=== PATIENT | male | born 1945 | race American Indian/Alaskan Native ===

== ENCOUNTER 2019-10-22 10:43 | Outpatient (CLI) | payer MEDICARE, OTHER ==
[2019-10-22 12:23] LABS: Blood Urea Nitrogen 17 mg/dL (9-20)
--- NOTE | 2019-10-22 14:54 | Cat Scan Report ---
CT ABDOMEN AND PELVIS WITH CONTRAST HISTORY: I88.00 RETROPERTIONAL LYMPHADENOPATHY. COMPARISON: CT abdomen/pelvis from 06/16/2019 TECHNIQUE: CT images of the abdomen and pelvis were obtained following administration of intravenous contrast. All CT scans at this location are performed using CT dose reduction for ALARA by means of automated exposure control. CONTRAST: 100 ml of intravenous contrast administered. FINDINGS: Lungs/bones: There is a stable 3 mm pleural-based nodule in the left lower lobe on image #17 of seri es #2. Lungs are otherwise clear. There are degenerative changes within the spine and pelvis with no acute osseous abnormality identified. Abdomen/pelvis: Multiple tiny cysts are seen throughout the liver and the liver is mildly enlarged. The gallbladder, spleen, pancreas, and proximal GI tract show no acute abnormality. Several tiny simp le cysts are seen in both kidneys. There is stable bilateral adrenal nodularity. On the previous noncontrast exam, most of these finding s were less than 10 Hounsfield units which is consistent with adenomata. The prostate is enlarged and indents the bladder base. The bladder itself is otherwise unremarkable. No pelvic free fluid and no acute colonic abnormality identified. The appendix and terminal ileum fide ear normal. There is no pathologic inguinal, iliac chain, peritoneal, or retroperitoneal adenopathy. IMPRESSION: 1. No evidence of retroperitoneal adenopathy. Previously referenced left para-aortic lymph node is ac tually nodularity within the left adrenal gland. Both adrenal glands maintain similar nodularity to t he previous exam suggesting adenomata. 2. Several stable incidental findings including a 3 mm pleural-based nodule in the left lower lobe wh ich has been stable for nearly 1.5 years. Signer Name: Miki Domingo MD Signed: 10/22/2019 2:49 PM Workstation Name: [id number]
== END 2019-10-22 10:44 | disposition home or self-care (01) ==
LOC: CT 10:43
PROVIDERS: ATTEND Internal Medicine Hematology & Oncology
DX: M47.816 Spondylosis without myelopathy or radiculopathy, lumbar region (principal); R91.1 Solitary pulmonary nodule; N28.1 Cyst of kidney, acquired; K76.89 Other specified diseases of liver; R16.0 Hepatomegaly, not elsewhere classified; I88.0 Nonspecific mesenteric lymphadenitis
CPT/HCPCS: 36415; 74177; 82565; 84520; Q9967

== ENCOUNTER 2020-08-21 15:33 | Emergency (ER) | payer MEDICARE, OTHER ==
[2020-08-21] MEDS ORDERED: ASPIRIN 325 MG TAB PO ONE (16:10)
[2020-08-21 16:47] LABS: Basophils % (Auto) 0.4 % (0.0-1.8); Hematocrit 42.6 % (35.5-45.6); Hemoglobin 14.2 gm/dl (11.8-15.2); Lymphocytes # (Auto) 1.1 K/mm3 (1.2-5.4); Lymphocytes % (Auto) 12.7 % (13.4-35.0); Mean Corpuscular HGB Conc 33 % (32-34); Mean Corpuscular Volume 85 fl (84-94); Monocytes # (Auto) 0.4 K/mm3 (0.0-0.8); Monocytes % (Auto) 4.4 % (0.0-7.3); Platelet Count 238 K/mm3 (140-440); Red Blood Count 5.03 M/mm3 (3.65-5.03); Red Cell Distribution Width 14.4 % (13.2-15.2)
[2020-08-21 16:55] LABS: BUN/Creatinine Ratio 11; Blood Urea Nitrogen 15 mg/dL (9-20); Calcium 10.1 mg/dL (8.4-10.2); Hemolysis Index 11
--- NOTE | 2020-08-21 18:00 | XRay Report ---
CHEST 1 VIEW INDICATION / CLINICAL INFORMATION: Chest Pain. COMPARISON: 06/15/2019 FINDINGS: SUPPORT DEVICES: None. HEART / MEDIASTINUM: Stable. LUNGS / PLEURA: No significant pulmonary or pleural abnormality. No pneumothorax. ADDITIONAL FINDINGS: No significant additional findings. IMPRESSION: 1. No acute findings. No significant interval change. Signer Name: William Bonilla MD Signed: 08/21/2020 5:55 PM Workstation Name: [id number]
[2020-08-21] MEDS ORDERED: POTASSIUM CHLORIDE ER 20 MEQ TAB PO ONE (18:54)
[2020-08-21] MEDS ORDERED: ONDANSETRON 4 MG ODT TAB PO ONE (18:55)
--- NOTE | 2020-08-21 18:56 | Emergency Department Report ---
ED General Adult HPI - General Chief complaint: Dyspnea/Respdistress Stated complaint: SHORTNESS OF BREATH/DIZZINESS/HIGH BLOOD PRESSURE PUI?: Yes Time Seen by Provider: 08/21/20 18:33 Source: patient, RN notes reviewed, old records reviewed Mode of arrival: Ambulatory Limitations: No Limitations - History of Present Illness Initial comments: The patient was evaluated in the emergency department for symptoms described in the history of present illness. He/she was evaluated in the context of the global COVID-19 pandemic, which necessitated consideration that the patient might be at risk for infection with the virus that causes COVID-19. Institutional protocols and algorithms that pertain to the evaluation of patients at risk for COVID-19 are in a state of rapid change based on information released by regulatory bodies including the CDC and federal and state organizations. These policies and algorithms were followed during the patient's care in the emergency department. Please note that these policies, procedures and recommendations changed on a rapid basis. During the entire history and physical, I had on complete personal protective equipment. This is a 75-year-old gentleman. His past medical history includes hypertension, heart failure with reduced ejection fraction, 30 to 35%, as per 2D echo, May 2019, left heart cath recently showed minimal CAD, moderate dilated LV, with moderate to severe diffuse hypokinesis, presumed dilated cardiomyopathy. Medical management for cardiology conditions, history of renal insufficiency versus CKD versus cardiorenal syndrome versus vasomotor nephropathy, history of para-aortic lymphadenopathy, sinus bradycardia, and "atypical chest pain." Today, the patient presents to the ER with a complaint of nonspecific shortness of breath, body aches, malaise and fatigue. He denies headache, neck pain, chest pain, abdominal pain, shortness of breath. He thinks he has loss of taste and smell but he is not sure. He also reports multiple episodes of nausea and vomiting. No diarrhea. No urinary symptoms. No exposure to Covid positive individuals that he is aware of. He is not having physical pain at this time. He has not taken any new medications within the past 3 days that he is aware of. Nausea and vomiting resolved. Shortness of breath resolved. -: Gradual, hour(s) Consistency: intermittent Improves with: none Worsens with: none - Related Data Home Medications Medication Instructions Recorded Confirmed Last Taken Magnesium Oxide [Mag-Ox] 400 mg PO QDAY 08/21/20 08/21/20 Unknown Previous Rx's Medication Instructions Recorded Last Taken Type Aspirin [Aspirin BABY CHEW TAB] 81 mg PO QDAY #30 tab.chew 06/19/19 Unknown Rx AtorvaSTATin [Lipitor] 20 mg PO QHS #30 tablet 06/19/19 Unknown Rx Furosemide [Lasix] 20 mg PO QDAY #30 tablet 06/19/19 Unknown Rx amLODIPine 10 mg PO QDAY #30 tablet 06/19/19 Unknown Rx lisinopriL [Zestril TAB] 20 mg PO QDAY #30 tablet 06/19/19 Unknown Rx Ondansetron [Zofran Odt] 4 mg PO Q8HR PRN #20 tab.rapdis 08/21/20 Unknown Rx Potassium Chloride [K-Dur] 20 meq PO BID #30 tab 08/21/20 Unknown Rx Allergies Allergy/AdvReac Type Severity Reaction Status Date / Time No Known Allergies Allergy Unverified 06/15/19 20:25 ED Review of Systems ROS: Stated complaint: SHORTNESS OF BREATH/DIZZINESS/HIGH BLOOD PRESSURE Other details as noted in HPI Constitutional: malaise, weakness. denies: fever Eyes: denies: eye discharge ENT: denies: congestion Respiratory: shortness of breath Cardiovascular: denies: chest pain Gastrointestinal: nausea, vomiting. denies: abdominal pain, diarrhea Genitourinary: denies: dysuria Musculoskeletal: denies: back pain Neurological: weakness Hematological/Lymphatic: denies: easy bleeding ED Past Medical Hx - Past Medical History Previous Medical History?: Yes Hx Hypertension: Yes Hx Heart Attack/AMI: No Hx Congestive Heart Failure: Yes Hx Renal Disease: Yes Hx Asthma: Yes Hx HIV: No Additional medical history: Bronchitis,bph - Social History Smoking Status: Never Smoker Substance Use Type: None - Medications Home Medications: Home Medications Medication Instructions Recorded Confirmed Last Taken Type Aspirin [Aspirin BABY CHEW TAB] 81 mg PO QDAY #30 tab.chew 06/19/19 08/21/20 Unknown Rx AtorvaSTATin [Lipitor] 20 mg PO QHS #30 tablet 06/19/19 08/21/20 Unknown Rx Furosemide [Lasix] 20 mg PO QDAY #30 tablet 06/19/19 08/21/20 Unknown Rx amLODIPine 10 mg PO QDAY #30 tablet 06/19/19 08/21/20 Unknown Rx lisinopriL [Zestril TAB] 20 mg PO QDAY #30 tablet 06/19/19 08/21/20 Unknown Rx Magnesium Oxide [Mag-Ox] 400 mg PO QDAY 08/21/20 08/21/20 Unknown History Ondansetron [Zofran Odt] 4 mg PO Q8HR PRN #20 tab.rapdis 08/21/20 Unknown Rx Potassium Chloride [K-Dur] 20 meq PO BID #30 tab 08/21/20 Unknown Rx ED Physical Exam - General Limitations: No Limitations General appearance: alert, in no apparent distress - Head Head exam: Present: atraumatic, normocephalic - Eye Eye exam: Present: normal appearance, EOMI. Absent: nystagmus - ENT ENT exam: Present: normal exam, normal orophraynx, mucous membranes moist, normal external ear exam - Neck Neck exam: Present: normal inspection, full ROM. Absent: tenderness, meningismus - Respiratory Respiratory exam: Present: normal lung sounds bilaterally. Absent: respiratory distress, wheezes, rales, rhonchi, stridor, decreased breath sounds - Cardiovascular Cardiovascular Exam: Present: regular rate, normal rhythm, normal heart sounds. Absent: bradycardia, tachycardia, irregular rhythm, systolic murmur, diastolic murmur, rubs, gallop - GI/Abdominal GI/Abdominal exam: Present: soft. Absent: distended, tenderness, guarding, rebound, rigid, pulsatile mass - Rectal Rectal exam: Present: deferred - Extremities Exam Extremities exam: Present: normal inspection, full ROM, other (2+ pulses noted in the bilateral upper and lower extremities. There is no palpable cord. negative Homans sign. Muscular compartments are soft. The pelvis is stable.). Absent: pedal edema, calf tenderness - Back Exam Back exam: Present: normal inspection, full ROM. Absent: tenderness, CVA tenderness (R), CVA tenderness (L), paraspinal tenderness, vertebral tenderness - Neurological Exam Neurological exam: Present: alert (Visual acuity intact to finger counting, color perception, reading at a close distance), oriented X3, normal gait, other (No facial droop. Tongue midline. Extraocular movements intact bilaterally. Facial sensation intact to light touch in V1, V2, V3 distribution bilaterally. 5 and a 5 strength in 4 extremities. Sensation intact to light touch in 4 extremities.). Absent: motor sensory deficit - Psychiatric Psychiatric exam: Present: anxious - Skin Skin exam: Present: warm, dry, intact, normal color. Absent: rash ED Course Vital Signs 08/21/20 08/21/20 08/21/20 16:02 19:50 20:00 Temperature 98.3 F Pulse Rate 73 91 H 84 Respiratory 32 H 23 Rate Blood Pressure 152/89 153/91 154/82 O2 Sat by Pulse 100 100 100 Oximetry 08/21/20 08/21/20 08/21/20 20:15 20:31 20:45 Temperature Pulse Rate 78 78 79 Respiratory 23 18 17 Rate Blood Pressure 153/91 153/91 153/91 O2 Sat by Pulse 94 94 98 Oximetry 08/21/20 21:11 Temperature Pulse Rate 74 Respiratory 16 Rate Blood Pressure O2 Sat by Pulse 100 Oximetry - Reevaluation(s) Reevaluation #1: 08/21/20 21:27 Differential diagnosis, including but not limited to: COVID-19, pneumonia, congestive heart failure,, Bony embolism, urinary tract infection, intra- abdominal obstruction Assessment and plan: 75-year-old gentleman complaining of unopposed nausea and vomiting, now resolved, and shortness of breath. Complaint #1, shortness of breath. Not hypoxic on room air. Able to ambulate on room air on portable pulse ox for 5 minutes without significant difficulty, or hypoxic event. From a Covid perspective, if patient truly has COVID-19, at this point in time, does not meet criteria for admission or hospitalization. His exam, and objective imaging at this time does not suggest pneumonia, or acute decompensated congestive heart failure. Given his initial tachypnea, and undifferentiated shortness of breath, D-dimer sent, elevated, CT angiogram of the chest is pending at this time. However, tachypnea resolved. Patient appears to be quite comfortable. EKG unchanged from prior. Reassess after CT scan of the chest has resulted. Complaint #2, nausea and vomiting. CT scan of the abdomen pelvis obtained, no acute pathology. Laboratory studies reviewed and appreciated, we will replete h ypokalemia. We will treat his complaint of nausea, however, no vomiting at this time. Urinalysis is pending at this time. Reassess after urinalysis, and CT scan of the chest have resulted. 08/21/20 21:29 08/21/20 23:10 patient reassessed multiple times. Urinalysis negative for acute findings. No active vomiting. CT scan of the chest negative for acute disease. Continues to ambulate without difficulty. Suitable for trial of outpatient management ED Medical Decision Making - Lab Data Result diagrams: 08/21/20 16:24 08/21/20 16:24 Vital Signs 08/21/20 16:02 Temperature 98.3 F Pulse Rate 73 Respiratory 32 H Rate Blood Pressure 152/89 O2 Sat by Pulse 100 Oximetry Lab Results 08/21/20 08/21/20 08/21/20 Range/Units 16:24 16:24 16:24 WBC 8.3 (4.5-11.0) K/mm3 RBC 5.03 (3.65-5.03) M/mm3 Hgb 14.2 (11.8-15.2) gm/dl Hct 42.6 (35.5-45.6) % MCV 85 (84-94) fl MCH 28 (28-32) pg MCHC 33 (32-34) % RDW 14.4 (13.2-15.2) % Plt Count 238 (140-440) K/mm3 Lymph % (Auto) 12.7 L (13.4-35.0) % [place] % (Auto) 4.4 (0.0-7.3) % Eos % (Auto) 0.0 (0.0-4.3) % Baso % (Auto) 0.4 (0.0-1.8) % Lymph # (Auto) 1.1 L (1.2-5.4) K/mm3 [place] # (Auto) 0.4 (0.0-0.8) K/mm3 Eos # (Auto) 0.0 (0.0-0.4) K/mm3 Baso # (Auto) 0.0 (0.0-0.1) K/mm3 Seg Neutrophils % 82.5 H (40.0-70.0) % Seg Neutrophils # 6.9 (1.8-7.7) K/mm3 D-Dimer (0-234) ng/mlDDU Sodium 140 (137-145) mmol/L Potassium 2.8 L* (3.6-5.0) mmol/L Chloride 101.5 (98-107) mmol/L Carbon Dioxide 22 (22-30) mmol/L Anion Gap 19 mmol/L BUN 15 (9-20) mg/dL Creatinine 1.4 H (0.8-1.3) mg/dL Estimated GFR 60 ml/min BUN/Creatinine Ratio 11 % Glucose 175 H (75-100) mg/dL Calcium 10.1 (8.4-10.2) mg/dL Magnesium 1.80 (1.7-2.3) mg/dL Total Creatine Kinase 382 H (55-170) units/L Troponin T < 0.010 (0.00-0.029) ng/mL NT-Pro-B Natriuret Pep 905.4 H (0-900) pg/mL TSH (0.270-4.200) mlU/mL 08/21/20 08/21/20 Range/Units 19:01 19:01 WBC (4.5-11.0) K/mm3 RBC (3.65-5.03) M/mm3 Hgb (11.8-15.2) gm/dl Hct (35.5-45.6) % MCV (84-94) fl MCH (28-32) pg MCHC (32-34) % RDW (13.2-15.2) % Plt Count (140-440) K/mm3 Lymph % (Auto) (13.4-35.0) % [place] % (Auto) (0.0-7.3) % Eos % (Auto) (0.0-4.3) % Baso % (Auto) (0.0-1.8) % Lymph # (Auto) (1.2-5.4) K/mm3 [place] # (Auto) (0.0-0.8) K/mm3 Eos # (Auto) (0.0-0.4) K/mm3 Baso # (Auto) (0.0-0.1) K/mm3 Seg Neutrophils % (40.0-70.0) % Seg Neutrophils # (1.8-7.7) K/mm3 D-Dimer 429.74 H (0-234) ng/mlDDU Sodium (137-145) mmol/L Potassium (3.6-5.0) mmol/L Chloride (98-107) mmol/L Carbon Dioxide (22-30) mmol/L Anion Gap mmol/L BUN (9-20) mg/dL Creatinine (0.8-1.3) mg/dL Estimated GFR ml/min BUN/Creatinine Ratio % Glucose (75-100) mg/dL Calcium (8.4-10.2) mg/dL Magnesium (1.7-2.3) mg/dL Total Creatine Kinase (55-170) units/L Troponin T (0.00-0.029) ng/mL NT-Pro-B Natriuret Pep (0-900) pg/mL TSH 0.435 (0.270-4.200) mlU/mL - EKG Data -: EKG Interpreted by Nm EKG shows normal: sinus rhythm Rate: normal - EKG Data 08/21/20 21:16 Sinus rhythm, 85 bpm, normal axis, QTC prolonged, poor R progression, atrial enlargement, left ventricular hypertrophy. Abnormal EKG. Not a STEMI. Grossly unchanged when compared to prior EKG from 2019, PVCs have resolved. - Radiology Data Radiology results: report reviewed, image reviewed Print Report Referring Physician: GIGI FAN Patient Name: JOSE WOODS JR Date of : 1945 Sex: Male Report Date: 2020-08-21 Report Status: Finalized Findings [facility] [address] [place] [address] Cat Scan Report Signed Patient: JOSE WOODS JR MR#: [id number] : 1945 Acct:[id number] Age/Sex: 75 / M ADM Date: 08/21/20 Loc: ED Attending Dr: Ordering Physician: GIGI FAN MD Date of Service: 08/21/20 Procedure(s): CT chest wo con Accession Number(s): [id number] cc: GIGI FAN MD CT CHEST WITHOUT CONTRAST INDICATION / CLINICAL INFORMATION: dyspnea, chf vs PNA. TECHNIQUE: Axial CT images were obtained through the chest without contrast. All CT scans at this location are performed using CT dose reduction for ALARA by means of automated exposure control. COMPARISON: None available. FINDINGS: CHEST: THORACIC AORTA: Mild atherosclerotic calcification without acute abnormality. HEART: There is cardiac enlargement without pericardial effusion. MEDIASTINUM / JESSICA: No significant abnormality. No significant thoracic lymphadenopathy. LUNGS/PLEURA: No acute airspace disease. No pleural effusion or pneumothorax. UPPER ABDOMEN: Detailed separately on concurrent CT of the abdomen and pelvis. BONES: NO ACUTE PROCESS. IMPRESSION: No acute process of the chest. Signer Name: Adry De La Torre MD Signed: 08/21/2020 8:02 PM Workstation Name: [id number] Transcribed By: JACK Dictated By: ADRY BARROSO MD Electronically Authenticated By: ADRY BARROSO MD Signed Date/Time: 08/21/202001 DD/ 99 TD/TT: Print Report Referring Physician: GIGI FAN Patient Name: JOSE WOODS JR Date of : 1945 Sex: Male Report Date: 2020-08-21 Report Status: [place] [address] Cat Scan Report Signed Patient: JOSE WOODS JR MR#: [id number] : 1945 Acct:[id number] Age/Sex: 75 / M ADM Date: 08/21/20 Loc: ED Attending Dr: Ordering Physician: GIGI FAN MD Date of Service: 08/21/20 Procedure(s): CT abdomen pelvis wo con Accession Number(s): [id number] cc: GIGI FAN MD CT ABDOMEN AND PELVIS WITHOUT CONTRAST INDICATION / CLINICAL INFORMATION: n/v , weakness. TECHNIQUE: Axial CT images were obtained through the abdomen and pelvis without IV contrast. All CT scans at this location are performed using CT dose reduction for ALARA by means of automated exposure control. COMPARISON: 10/22/2019. FINDINGS: LIVER: Stable tiny hypodensities throughout the liver, statistically reflect cysts. GALLBLADDER/BILIARY TREE: Unremarkable PANCREAS: Unremarkable SPLEEN: Unremarkable ADRENALS: Stable pelon ateral adrenal nodularity. Most of these measure less than 10 Hounsfield units, most compatible with adenomata. KIDNEYS / URETER: Left renal cysts are present. There is no urolithiasis or hydronephrosis. URINARY BLADDER: Unremarkable REPRODUCTIVE ORGANS: Unremarkable STOMACH / SMALL BOWEL: Stomach and small bowel are normal in caliber. No evidence of bowel inflammation. COLON: The colon is unremarkable. The appendix is normal in caliber. LYMPH NODES: No significant adenopathy. VASCULATURE: Mild atherosclerotic calcification without acute abnormality. OTHER: No free air, free fluid, or focal fluid collection is identified. SKELETAL SYSTEM: Moderate scattered degenerative changes of the spine with severe lower lumbar facet arthropathy. No acute osseous findings. IMPRESSION: 1. No acute process of the abdomen or pelvis. 2. Several stable chronic, incidental findings, as detailed above. Signer Name: Adry De La Torre MD Signed: 08/21/2020 8:10 PM Workstation Name: [id number] Transcribed By: JACK Dictated By: ADRY BARROSO MD Electronically Authenticated By: ADRY BARROSO MD Signed Date/Time: 08/21/202009 DD/ 04 TD/TT: Print Report Referring Physician: ED LETICIA Patient Name: JOSE WOODS JR Date of : 1945 Sex: Male Report Date: 2020-08-21 Report Status: Finalized Findings [address] [address] XRay Report Signed Patient: JOSE WOODS JR MR#: [id number] : 1945 Acct:[id number] Age/Sex: 75 / M ADM Date: 08/21/20 Loc: ED Attending Dr: Ordering Physician: GIANCARLO KELLY MD Date of Service: 08/21/20 Procedure (s): XR chest 1V ap Accession Number(s): [id number] cc: ED MD LETICIA Fluoro Time In Minutes: CHEST 1 VIEW INDICATION / CLINICAL INFORMATION: Chest Pain. COMPARISON: 06/15/2019 FINDINGS: SUPPORT DEVICES: None. HEART / MEDIASTINUM: Stable. LUNGS / PLEURA: No significant pulmonary or pleural abnormality. No pneumothorax. ADDITIONAL FINDINGS: No significant additional findings. IMPRESSION: 1. No acute findings. No significant interval change. Signer Name: William Brooke MD Signed: 08/21/2020 5:55 PM Workstation Name: [id number] Transcribed By: Dictated By: WILLIAM BROOKE Electronically Authenticated By: WILLIAM BROOKE Signed Date/Time: 08/21/201754 DD/ 54 TD/TT: Critical care attestation.: If time is entered above; I have spent that time in minutes in the direct care of this critically ill patient, excluding procedure time. ED Disposition Clinical Impression: Hypokalemia, Dyspnea, History of nausea and vomiting, Suspected 2019 novel coronavirus infection Disposition: DC-01 TO HOME OR SELFCARE Is pt being admited?: No Does the pt Need Aspirin: No Condition: Good Additional Instructions: As we discussed, the patient most likely has novel coronavirus/COVID. the symptoms of COVID will typically persist 10 to 14 days. There is no cure at this time for COVID. Please make certain to self isolate and self quarantine, follow-up with an outpatient primary care doctor within the next 3 to 5 days, wash hands with soap and water frequently, thoroughly and often, patient may take the prescribed medications as needed and directed. Advance diet and drink plenty of fluids as tolerated. Avoid interactions with the very elderly, very young, and those with chronic medical conditions. Return to the emergency room right away with new pain, worsening pain, migration of pain, projectile vomiting, change in mental status, confusion, inability to tolerate liquid feeds, new, worsened or different symptoms not present on the initial emergency room evaluation. Do not take metformin medication for the next 2 days, if patient takes this medication. Referrals: MACRINA BRANHAM MD [Primary Care Provider] - 3-5 Days
[2020-08-21] MEDS: POTASSIUM CHLORIDE 10 MEQ 10 MEQ/100 ML BAG IV SCH ×4 (19:15→23:47)
[2020-08-21] MEDS ORDERED: SODIUM CHLORIDE 0.9% 500 ML 500 ML ONE (19:18)
[2020-08-21] MEDS ORDERED: SODIUM CHLORIDE 0.9% 500 ML 500 ML IV SCH (20:00)
--- NOTE | 2020-08-21 20:06 | Cat Scan Report ---
CT CHEST WITHOUT CONTRAST INDICATION / CLINICAL INFORMATION: dyspnea, chf vs PNA. TECHNIQUE: Axial CT images were obtained through the chest without contrast. All CT scans at this location are p erformed using CT dose reduction for ALARA by means of automated exposure control. COMPARISON: None available. FINDINGS: CHEST: THORACIC AORTA: Mild atherosclerotic calcification without acute abnormality. HEART: There is cardiac enlargement without pericardial effusion. MEDIASTINUM / JESSICA: No significant abnormality. No significant thoracic lymphadenopathy. LUNGS/PLEURA: No acute airspace disease. No pleural effusion or pneumothorax. UPPER ABDOMEN: Detailed separately on concurrent CT of the abdomen and pelvis. BONES: NO ACUTE PROCESS. IMPRESSION: No acute process of the chest. Signer Name: Tom De La Torre MD Signed: 08/21/2020 8:02 PM Workstation Name: [id number]
--- NOTE | 2020-08-21 20:15 | Cat Scan Report ---
CT ABDOMEN AND PELVIS WITHOUT CONTRAST INDICATION / CLINICAL INFORMATION: n/v , weakness. TECHNIQUE: Axial CT images were obtained through the abdomen and pelvis without IV contrast. All CT scans at this location are performed using CT dose reduction for ALARA by means of automated exposure control. COMPARISON: 10/22/2019. FINDINGS: LIVER: Stable tiny hypodensities throughout the liver, statistically reflect cysts. GALLBLADDER/BILIARY TREE: Unremarkable PANCREAS: Unremarkable SPLEEN: Unremarkable ADRENALS: Stable bilateral adrenal nodularity. Most of these measure less than 10 Hounsfield units, m ost compatible with adenomata. KIDNEYS / URETER: Left renal cysts are present. There is no urolithiasis or hydronephrosis. URINARY BLADDER: Unremarkable REPRODUCTIVE ORGANS: Unremarkable STOMACH / SMALL BOWEL: Stomach and small bowel are normal in caliber. No evidence of bowel inflammati on. COLON: The colon is unremarkable. The appendix is normal in caliber. LYMPH NODES: No significant adenopathy. VASCULATURE: Mild atherosclerotic calcification without acute abnormality. OTHER: No free air, free fluid, or focal fluid collection is identified. SKELETAL SYSTEM: Moderate scattered degenerative changes of the spine with severe lower lumbar facet arthropathy. No acute osseous findings. IMPRESSION: 1. No acute process of the abdomen or pelvis. 2. Several stable chronic, incidental findings, as detailed above. Signer Name: Tom De La Torre MD Signed: 08/21/2020 8:10 PM Workstation Name: [id number]
--- NOTE | 2020-08-21 22:10 | Cat Scan Report ---
CTA CHEST WITH CONTRAST INDICATION / CLINICAL INFORMATION: dyspnea, + d dimer. TECHNIQUE: Axial CT images were obtained through the chest after injection of IV contrast. 3 plane TX P and/or 3D reconstructions were produced. All CT scans at this location are performed using CT dose reduction for ALARA by means of automated exposure control. COMPARISON: CT of the chest from earlier today. FINDINGS: PULMONARY ARTERIES: No central or segmental pulmonary embolus. THORACIC AORTA: No significant abnormality. HEART: No significant abnormality. ADENOPATHY: No significant adenopathy. LUNGS/PLEURA: Scattered areas of volume loss. No focal airspace consolidation. No pleural effusion. N o pneumothorax. ADDITIONAL FINDINGS: None. UPPER ABDOMEN: Stable from prior study. SKELETAL STRUCTURES: No significant osseous abnormality. IMPRESSION: 1. No CT evidence for pulmonary embolism. 2. No acute findings. Signer Name: Tom De La Torre MD Signed: 08/21/2020 10:06 PM Workstation Name: [id number]
[2020-08-21 22:31] LABS: Bilirubin,Urine NEG (Negative); Blood,Urine NEG (Negative); Color,Urine Straw (Yellow); Urobilinogen,Urine < 2.0 mg/dL (<2.0)
[2020-08-21 22:32] LABS: WBC,Urine < 1.0 /HPF (0.0-6.0)
[2020-08-22 00:34] VITALS: BP 130/79
== END 2020-08-22 00:50 | disposition home or self-care (01) ==
LOC: ED 15:33
DX: E87.6 Hypokalemia (principal); R06.00 Dyspnea, unspecified; Z20.828 Contact with and (suspected) exposure to other viral communicable diseases; I11.0 Hypertensive heart disease with heart failure; N28.1 Cyst of kidney, acquired; Z79.82 Long term (current) use of aspirin; Z79.899 Other long term (current) drug therapy
CPT/HCPCS: 36415; 71045; 71250; 71275; 74176; 80048; 81001; 82550; 83735; 83880; 84443; 84484; 85025; 85379; 93005; 96365; 96366; 99285; J3480; J7040; Q9967; Q0162